=== PATIENT | female | born 1965 | race Caucasian/White ===

== ENCOUNTER 2019-02-23 06:50 | Day surgery (SDC) | payer MEDICAID ==
[2019-02-16 14:54] LABS: BASOPHILS # (AUTO) 0.2 X10'3 (0-0.2); BASOPHILS % (AUTO) 1.9 % (0-1); EOSINOPHILS # (AUTO) 0.3 X10'3 (0-0.9); EOSINOPHILS % (AUTO) 2.3 % (0-6); LYMPHOCYTES # (AUTO) 3.9 X10'3 (1.1-4.8); LYMPHOCYTES % (AUTO) 32.1 % (21-51); MEAN CORPUSCULAR HEMOGLOBIN 31.8 PG (27.0-31.0); MEAN CORPUSCULAR HGB CONC 34.7 g/dL (33.0-36.5); MEAN CORPUSCULAR VOLUME 91.7 FL (78-98); MONOCYTES # (AUTO) 0.7 X10'3 (0-0.9); NEUTROPHILS % (AUTO) 57.7 % (42-75); PRE OP HEMOGLOBIN 15.9 g/dL (12.0-16.0); PRE OP PLATELET COUNT 249 X10'3 (140-440); RED BLOOD COUNT 5.01 X10'6 (4.20-5.60); RED CELL DISTRIBUTION WIDTH 13.4 % (11.5-14.5)
[2019-02-16 15:09] LABS: ALBUMIN 3.9 G/DL (3.4-5.0); ALBUMIN/GLOBULIN RATIO 1.1 (1.1-1.5); ALKALINE PHOSPHATASE 96 IU/L (46-116); BLOOD UREA NITROGEN 11 MG/DL (7-18); BUN/CREATININE RATIO 13.9 (6.6-38.0); CALCIUM 9.5 MG/DL (8.5-10.1); CHLORIDE 102 MMOL/L (99-107); CREATININE 0.79 MG/DL (0.40-0.90); PRE OP ALT 37 U/L (30-65); PRE OP ANION GAP 8 (8-16); PRE OP AST 19 U/L (10-37); PRE OP BILIRUB, TOTAL 0.3 MG/DL (0.0-1.0); PRE OP GLUCOSE 124 MG/DL (70-104); PRE OP SODIUM 139 MMOL/L (135-145); TOTAL CARBON DIOXIDE 28.7 MMOL/L (24-32); TOTAL PROTEIN 7.5 G/DL (6.4-8.2); eGFR 76 ML/MIN
[~2019-02-23] VITALS: Ht 149.9 cm; Wt 71.7 kg
[~2019-02-23 06:50] MED LIST: CYCL-1 PO; GABA-532 PO; GABAP PO; IBU PO; LISI1TAB9 PO; MELOXICAM PO; NAPR-996 PO; OMEP40CA37 PO; ceFAZolin/D5W- 1GM premix 50 ML IV ONE; famotidine 20mg tablet PO ONE; ringers solution, lacted 1,000 ML IV SCH
[2019-02-23] MEDS ORDERED: BUPIVAcaine/PF 2.5mg/ml (0.25%) 10ml vial ONE (06:55)
[2019-02-23 08:22] VITALS: BP 127/83
[2019-02-23 08:23] VITALS: BP 127/83
[2019-02-23] MEDS ORDERED: LIDOcaine 0.5% (5mg/ml) 50ml vial ONE (09:25)
[2019-02-23] MEDS ORDERED: fentaNYL/PF 50MCG/1 ML 2ML syringe ONE (09:28)
[2019-02-23] MEDS ORDERED: midazolam 2 mg/2 ml injection ONE (09:28)
[2019-02-23 09:55] VITALS: BP 131/79
--- NOTE | 2019-02-23 09:55 | NUR ---
Received from OR via [facility], accompanied by Anesthesiologist dr barcenas and report given by Anesthesiolgist. patient a&ox4, DENIES PAIN, V/S WNL, NEUROVASCULAR CHECKS INTACT. LUE PIV, SCD ON, ICE TO RUE AND ELEVATED, RUE DRESSING CDI.
[2019-02-23 10:05] VITALS: BP 136/73
[2019-02-23 10:15] VITALS: BP 127/71
[2019-02-23 10:25] VITALS: BP 124/73
--- NOTE | 2019-02-23 10:25 | NUR ---
patient a&ox4, DENIES PAIN, V/S WNL, NEUROVASCULAR CHECKS INTACT. LUE PIV, SCD ON, ICE TO RUE AND ELEVATED, RUE DRESSING CDI. ALL DC CRITERIA HAS BEEN MET. IV OUT WITHOUT ISSUE OR COMPLICATION. DENIES PAIN. FAMILY PRESENT FOR DC PAPERWORK. ALL QUESTIONS ANSWERED, FAMILY ASSISTED PATIENT IN GETTING DRESSED, OUT VIA WHEELCHAIR TO PERSONAL VEHICLE WHERE FAMILY DROVE PATIENT HOME. ALL DC CRITERIA HAS BEEN MET AND DRESSING IS CDI.
== END 2019-02-23 10:25 | disposition home or self-care (01) ==
LOC: PAS 06:50
PROVIDERS: ATTEND Orthopaedic Surgery Hand Surgery
DX: M65.331 Trigger finger, right middle finger (principal); M72.0 Palmar fascial fibromatosis [Dupuytren]
CPT/HCPCS: 26055; 26121; 36415; 71046; 80053; 85025; 93005; A6222; A6449; J0690; J2001; J2250; J3010; J3490; J7120

== ENCOUNTER 2019-12-11 08:07 | Day surgery (SDC) | payer MEDICAID ==
[2019-12-07 16:45] LABS: BASOPHILS # (AUTO) 0.2 X10'3 (0-0.2); BASOPHILS % (AUTO) 1.4 % (0-1); EOSINOPHILS # (AUTO) 0.3 X10'3 (0-0.9); EOSINOPHILS % (AUTO) 2.1 % (0-6); LYMPHOCYTES # (AUTO) 5.7 X10'3 (1.1-4.8); MEAN CORPUSCULAR HGB CONC 34.8 g/dL (33.0-36.5); MEAN CORPUSCULAR VOLUME 94.8 FL (78-98); MEAN PLATELET VOLUME 8.8 FL (7.4-10.4); MONOCYTES # (AUTO) 0.8 X10'3 (0-0.9); MONOCYTES % (AUTO) 5.8 % (2-12); NEUTROPHILS # (AUTO) 6.3 X10'3 (1.8-7.7); NEUTROPHILS % (AUTO) 47.7 % (42-75); PRE OP HEMATOCRIT 48.6 % (35.0-45.0); PRE OP HEMOGLOBIN 16.9 g/dL (12.0-16.0); PRE OP PLATELET COUNT 274 X10'3 (140-440); RED BLOOD COUNT 5.13 X10'6 (4.20-5.60)
[2019-12-07 16:46] LABS: CLARITY,URINE CLEAR (Clear); COLOR,URINE STRAW (Yellow); GLUCOSE, URINE NEGATIVE (Neg); KETONES,URINE NEGATIVE (Neg); LEUKOCYTE ESTERASE ,URINE NEGATIVE (Neg); NITRITES, URINE NEGATIVE (Neg); OCCULT BLOOD,URINE TRACE-INTACT (Neg); PROTEIN,URINE NEGATIVE (Neg); UROBILINOGEN,URINE 0.2 E.U/dL (0.2-1.0)
[2019-12-07 16:48] LABS: UA COLLECTION TYPE CLN CATCH MIDSTREAM
[2019-12-07 16:56] LABS: BACTERIA,URINE FEW /HPF (Neg); MUCUS STRANDS NONE SEEN /LPF (Neg); RBC,URINE 0-2 /HPF (0-2); SQUAMOUS EPITHELIAL CELL,UR FEW /LPF (FEW); WBC,URINE 0-4 /HPF (0-4)
[2019-12-07 16:59] LABS: ALBUMIN 4.5 G/DL (3.4-5.0); ALBUMIN/GLOBULIN RATIO 1.4 (1.1-1.5); ALKALINE PHOSPHATASE 96 IU/L (46-116); BLOOD UREA NITROGEN 17 MG/DL (7-18); BUN/CREATININE RATIO 22.1 (6.6-38.0); CHLORIDE 103 MMOL/L (99-107); CREATININE 0.77 MG/DL (0.40-0.90); PRE OP ALT 41 U/L (30-65); PRE OP ANION GAP 9 (8-16); PRE OP AST 30 U/L (10-37); PRE OP BILIRUB, TOTAL 0.6 MG/DL (0.0-1.0); PRE OP GLUCOSE 99 MG/DL (70-104); PRE OP SODIUM 137 MMOL/L (135-145); TOTAL CARBON DIOXIDE 24.8 MMOL/L (24-32); TOTAL PROTEIN 7.7 G/DL (6.4-8.2); eGFR 78 ML/MIN
[2019-12-07 17:05] LABS: PRE OP POTASSIUM 3.9 MMOL/L (3.4-5.1)
[~2019-12-11] VITALS: Ht 149.9 cm; Wt 70.0 kg
[2019-12-11] VITALS (11 sets, daily range): BP systolic 126–167; BP diastolic 68–92
[~2019-12-11 08:07] MED LIST changes: +Cefazolin 2GM/100ML NS IVPB 100 ML IV ONE; -GABAP PO; -IBU PO; +LISI1TAB32 PO; -LISI1TAB9 PO; -MELOXICAM PO; +OMEP40CA13 PO; -OMEP40CA37 PO; -ceFAZolin/D5W- 1GM premix 50 ML IV ONE; +famotidine 10mg tablet PO ONE; -famotidine 20mg tablet PO ONE
[2019-12-11] MEDS ORDERED: LIDOcaine 1% (10mg/ml) 2ml vial ONE (09:20)
[2019-12-11] MEDS ORDERED: BUPIVAcaine/PF 2.5 mg/ml (0.25%) 30ml vial ONE (10:23)
[2019-12-11] MEDS ORDERED: sevoflurane 250ml liquid IH ONE (10:23)
[2019-12-11] MEDS ORDERED: fentaNYL/PF 50MCG/1 ML 2ML syringe ONE (10:30)
[2019-12-11] MEDS ORDERED: midazolam 2 mg/2 ml injection ONE (10:30)
[2019-12-11] MEDS ORDERED: ringers solution, lacted 1,000 ML IV SCH (10:54)
[2019-12-11] MEDS ORDERED: meperidine/PF 25mg/ml syringe IV PRN ×3 (10:55)
[2019-12-11] MEDS ORDERED: morphine 4 MG/ML inj SYRINge IV PRN ×2 (10:55)
[2019-12-11] MEDS ORDERED: proCHLORperazine 10 MG/2 ml inj IV PRN (10:55)
[2019-12-11] MEDS ORDERED: ondansetron/PF 4mg/2ml inj IV PRN (10:55)
[2019-12-11] MEDS ORDERED: BUPIVACAINE liposomal/PF 13.3 MG/ML vial IM ONE (11:00)
[2019-12-11] MEDS ORDERED: propofol inj 20 ML IV ONE (11:16)
--- NOTE | 2019-12-11 11:25 | NUR ---
Received from OR via , accompanied by Anesthesiologist DESTINI and report given by Anesthesiolgist. AWAKE IN NO RESP DISTRESS, SKIN WARM AND DRY HOB ELEVATED, ABD SOFT DSG DI, NO CO PAIN.
--- NOTE | 2019-12-11 12:45 | NUR ---
TRYING TO VOID. BOYFRIEND AT BS.
[2019-12-11] MEDS ORDERED: HYDROcodone/acetaminophen 5mg/325mg tablet PO ONE (13:10)
--- NOTE | 2019-12-11 14:15 | NUR ---
AWAKE UNABLE TO VOID, BACK TO PAS TO WAIT FOR VOID. VS WNL, PAIN DECREASED AFTER PO MEDS DSG WITH SM SSD. TOLERATES LIQUIDS. DISCH INSTR GIVEN TO PT AND SO AND UNDERSTOOD. TO PAS/
== END 2019-12-11 15:40 | disposition home or self-care (01) ==
LOC: PAS 08:07
PROVIDERS: ATTEND Surgery
DX: K64.3 Fourth degree hemorrhoids (principal); K64.4 Residual hemorrhoidal skin tags; K62.3 Rectal prolapse; F17.210 Nicotine dependence, cigarettes, uncomplicated; I10 Essential (primary) hypertension; K21.9 Gastro-esophageal reflux disease without esophagitis; G89.29 Other chronic pain; M54.9 Dorsalgia, unspecified
CPT/HCPCS: 36415; 46947; 80053; 81001; 82948; 85025; 93005; A6224; C9290; J0690; J2001; J2175; J2250; J2704; J3010; J3490; A4215; A4618; A6449; A7000; J7120

== ENCOUNTER 2022-10-29 05:41 | Day surgery (SDC) | payer MEDICAID ==
[2022-10-28 09:50] LABS: BASOPHILS # (AUTO) 0.1 X10'3 (0-0.2); BASOPHILS % (AUTO) 0.7 % (0-1); EOSINOPHILS # (AUTO) 0.3 X10'3 (0-0.9); EOSINOPHILS % (AUTO) 2.7 % (0-6); LYMPHOCYTES # (AUTO) 3.3 X10'3 (1.1-4.8); LYMPHOCYTES % (AUTO) 35.9 % (21-51); MEAN CORPUSCULAR HEMOGLOBIN 31.9 PG (27.0-31.0); MEAN CORPUSCULAR HGB CONC 34.1 g/dL (33.0-36.5); MEAN CORPUSCULAR VOLUME 93.5 FL (78-98); MEAN PLATELET VOLUME 7.8 FL (7.4-10.4); MONOCYTES # (AUTO) 0.6 X10'3 (0-0.9); MONOCYTES % (AUTO) 6.3 % (2-12); NEUTROPHILS # (AUTO) 5.1 X10'3 (1.8-7.7); NEUTROPHILS % (AUTO) 54.4 % (42-75); PRE OP HEMATOCRIT 47.1 % (35.0-45.0); PRE OP PLATELET COUNT 252 X10'3 (140-440); RED BLOOD COUNT 5.03 X10'6 (4.20-5.60); RED CELL DISTRIBUTION WIDTH 13.5 % (11.5-14.5)
[2022-10-28 10:14] LABS: ALBUMIN 4.2 G/DL (3.4-5.0); ALBUMIN/GLOBULIN RATIO 1.4 (1.1-1.5); ALKALINE PHOSPHATASE 91 IU/L (46-116); BLOOD UREA NITROGEN 8 MG/DL (7-18); BUN/CREATININE RATIO 11.3 (6.6-38.0); CALCIUM 9.2 MG/DL (8.5-10.1); CREATININE 0.71 MG/DL (0.40-0.90); PRE OP ALT 24 U/L (30-65); PRE OP AST 21 U/L (10-37); PRE OP BILIRUB, TOTAL 0.7 MG/DL (0.0-1.0); PRE OP GLUCOSE 145 MG/DL (70-104); TOTAL CARBON DIOXIDE 27.9 MMOL/L (24-32); TOTAL PROTEIN 7.1 G/DL (6.4-8.2); eGFR 85 ML/MIN
[2022-10-28 10:32] LABS: CHLORIDE 102 MMOL/L (99-107); PRE OP POTASSIUM 4.4 MMOL/L (3.4-5.1)
[2022-10-28 10:35] LABS: PRE OP ANION GAP 10 (8-16); PRE OP SODIUM 140 MMOL/L (135-145)
[~2022-10-29] VITALS: Ht 149.9 cm; Wt 63.0 kg
[~2022-10-29 05:41] MED LIST changes: +ALBU90AE2; +ATOR10TA70 PO; -Cefazolin 2GM/100ML NS IVPB 100 ML IV ONE; -LISI1TAB32 PO; +LISI1TAB49 PO; +METF-1203 PO; -OMEP40CA13 PO; +OMEP40CA21 PO; +SUMA25TA9; +ceFAZolin inj. 2,000 MG in dextrose 5%-water 100 ML IV ONE; -famotidine 10mg tablet PO ONE; +famotidine 20mg tablet PO ONE
[2022-10-29 06:37] VITALS: BP 129/76
[2022-10-29] MEDS ORDERED: BUPIVAcaine 0.5% inj/PF 30 ML ONE (07:01)
[2022-10-29] MEDS ORDERED: ipratropium/albuterol 3ml nebule ONE (07:14)
[2022-10-29] MEDS ORDERED: ipratropium/albuterol 3ml nebule NEB ONE (07:15)
[2022-10-29] MEDS ORDERED: LIDOcaine 0.5% (5mg/ml) 50ml vial ONE (07:23)
[2022-10-29] MEDS ORDERED: midazolam 1 mg/ML 2ml injection ONE ×2 (07:28→07:51)
[2022-10-29] MEDS ORDERED: fentaNYL/PF 50MCG/1 ML 2ML syringe ONE ×2 (07:29→07:51)
[2022-10-29] MEDS ORDERED: BUPIVAcaine 0.5% inj/PF 30 ml vial IJ ONE (07:56)
[2022-10-29] MEDS ORDERED: propofol inj 20 ML IV ONE (08:15)
[2022-10-29 08:27] VITALS: BP 132/100
--- NOTE | 2022-10-29 08:32 | NUR ---
Received from OR via , accompanied by Anesthesiologist IFTIKHAR AND OR NURSE and report given by Anesthesiolgist. PT IS A/O X4. DENIES PAIN OR DISCOMFORT. RT WRIST IV INFUSING LR. LEFT WRIST IN GAUZE AND ANNI WRAP ELEVATED AND ICE APPLIED. PT SAT WNL ON ROOM AIR. [id number] Addendum: 10/29/22 at 0848 by Elizabeth Randall RN Amended: Links added.
[2022-10-29] MEDS ORDERED: ondansetron/PF 4mg/2ml inj IV PRN (08:35)
[2022-10-29] MEDS ORDERED: morphine 2 MG/ML inj. syringe IV PRN (08:35)
[2022-10-29] MEDS ORDERED: meperidine/PF 25mg/ml syringe IV PRN ×3 (08:35)
[2022-10-29] MEDS ORDERED: ringers solution, lacted 1,000 ML IV SCH (08:35)
[2022-10-29] MEDS ORDERED: morphine 4 MG/ML inj SYRINge IV PRN (08:35)
[2022-10-29] MEDS ORDERED: proCHLORperazine 10 MG/2 ml inj IV PRN (08:35)
[2022-10-29 08:40] VITALS: BP 133/70
[2022-10-29 08:50] VITALS: BP 149/83
[2022-10-29 09:00] VITALS: BP 149/84
--- NOTE | 2022-10-29 09:27 | NUR ---
I HAVE REVIEWED D/C INSTRUCTIONS WITH PATIENT AND THEY HAVE VERBALIZED UNDERSTANDING OF INSTRUCTIONS. PATIENT D/C HOME WITH ALL BELONGINGS AND FAMILY GAVE TRANSPORT Addendum: 10/29/22 at [id number] by Elizabeth Randall RN Amended: Links added.
== END 2022-10-29 09:27 | disposition home or self-care (01) ==
LOC: PAS 05:41
PROVIDERS: ATTEND Orthopaedic Surgery Hand Surgery
DX: M18.12 Unilateral primary osteoarthritis of first carpometacarpal joint, left hand (principal); M67.432 Ganglion, left wrist; Z79.899 Other long term (current) drug therapy; Z98.890 Other specified postprocedural states; K21.9 Gastro-esophageal reflux disease without esophagitis; Z88.8 Allergy status to other drugs, medicaments and biological substances; Z72.89 Other problems related to lifestyle
CPT/HCPCS: 25111; 25312; 25447; 36415; 80053; 82948; 85025; 93005; 94640; J0690; J2250; J2704; J3010; J3490; J7030; J7060; J7120; S0020; Z7506; Z7512; A4215; A4618; A7000

== ENCOUNTER 2024-05-24 08:15 | Outpatient (CLI) | payer MEDICAID ==
[~2024-05-24 08:15] MED LIST changes: -ceFAZolin inj. 2,000 MG in dextrose 5%-water 100 ML IV ONE; -famotidine 20mg tablet PO ONE; -ringers solution, lacted 1,000 ML IV SCH
== END 2024-05-24 23:59 | disposition home or self-care (01) ==
LOC: MRI 08:15
PROVIDERS: ATTEND Nurse Practitioner Adult Health
DX: M51.17 Intervertebral disc disorders with radiculopathy, lumbosacral region (principal); M51.46 Schmorl's nodes, lumbar region; D18.09 Hemangioma of other sites; M25.551 Pain in right hip; M48.05 Spinal stenosis, thoracolumbar region; M48.07 Spinal stenosis, lumbosacral region; M47.817 Spondylosis without myelopathy or radiculopathy, lumbosacral region
CPT/HCPCS: 73718